=== PATIENT | female | born 2005 | race Caucasian/White ===

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

== ENCOUNTER 2024-05-08 00:52 | Emergency (ER) | payer MEDICAID ==
[~2024-05-08] VITALS: Ht 157.5 cm; Wt 59.0 kg
[~2024-05-08 00:52] MED LIST: SULF-59 PO
[2024-05-08 01:00] VITALS: BP 108/74; PULSE 70; RESP 16; TEMP 98.2; O2SAT 99
[2024-05-08 02:10] LABS: APPEARANCE,URINE CLEAR (CLEAR); BILIRUBIN,URINE NEGATIVE (NEGATIVE); BLOOD, URINE TRACE-L (NEGATIVE); COLOR,URINE YELLOW (YELLOW); LEUKOCYTE ESTERASE ,URINE TRACE (NEGATIVE); NITRITE, URINE NEGATIVE (NEGATIVE); PROTEIN,URINE NEGATIVE (NEGATIVE); UGLUCOSE NEGATIVE (NEGATIVE); UROBILINOGEN,URINE 0.2 EU/dL (0.2 - 1)
[2024-05-08 02:17] VITALS: O2SAT 98
[2024-05-08 02:18] LABS: BACTERIA,URINE 10-30 (MOD) /HPF (None Seen); MUCUS,URINE 1+ /LPF (None Seen); SQUAMOUS EPITHELIAL CELL,UR 0-3 (FEW) /LPF (0-3 (FEW))
[2024-05-08 02:38] VITALS: BP 103/61; PULSE 71; RESP 16; TEMP 98.2
[2024-05-08] MEDS: LIDOCAINE 4% 1 EA PATCH TP ONE (03:19)
[2024-05-08] MEDS: ACETAMINOPHEN EXTRA STRENGTH 500 MG TAB PO ONE (03:19)
[2024-05-08 04:36] VITALS: O2SAT 98
[2024-05-08] MEDS ORDERED: ACET500T99 PO (04:38)
[2024-05-08] MEDS ORDERED: LID5T TP (04:38)
[2024-05-08] MEDS ORDERED: NITR100C7 PO (04:38)
== END 2024-05-08 04:41 | disposition home or self-care (01) ==
LOC: MED 00:52
DX: S29.012A Strain of muscle and tendon of back wall of thorax, initial encounter (principal); N39.0 Urinary tract infection, site not specified; M54.50 Low back pain, unspecified; Z79.899 Other long term (current) drug therapy; X58.XXXA Exposure to other specified factors, initial encounter; Y92.89 Other specified places as the place of occurrence of the external cause; Y93.89 Activity, other specified; Y99.8 Other external cause status
CPT/HCPCS: 81001; 81025; 87086; 93005; 99284